=== PATIENT | female | born 1950 | race Caucasian/White ===

== ENCOUNTER 2024-06-22 13:01 | Inpatient (IN) | payer MEDICARE, SELFPAY ==
[2024-06-22] VITALS (13 sets, daily range): BP systolic 107–143; BP diastolic 73–107; BMI 31.7
--- NOTE | 2024-06-22 08:47 | ED.GENMED ---
History of Present Illness
General
Chief Complaint: Breathing Problem
Source: patient
Exam Limitations: none
Time Seen by Provider: 06/22/24 08:46
Nursing documentation reviewed up to this point in time: agreed with
History of Present Illness
History of Present Illness:
pt is a 74 y/o F
on no medications
sedentary lifestyle
here from outpatient CT with + b/l PE mild clot burden, maybe pulm infarct and no evidence RV strain
pt has had sxs of UMANA with some pleuritic CP for a few weeks now, all symptoms resolved at rest. She saw a new family doctor about a week ago and because of the symptoms being for several weeks the physician opted to order a CT of the chest with
contrast which the patient had this morning. She was directly sent over to the emergency department after a finding of bilateral distal main pulmonary artery PEs with few additional segmental left lower lobe PE, no evidence of right heart strain
and may be a possible lung infarction measuring 2.6 x 1.8 cm in the left lower lobe.
Patient has no O2 requirement, she is tachycardic in the 110s,
With a left bundle branch block on EKG however the patient has no previous EKG in our system
She has no medical problems. Patient had COVID a year ago and has had some issues with a cough coming and going, may be wheezing, so she thought her symptoms were all related to COVID infection previously. Patient does note that she has had left
thigh pain off and on for several weeks. She has not had any swelling or discoloration to the leg
She has never had a DVT or PE before. Patient apparently likes to sit on the couch most of the day. She has not traveled across the country
Review of Systems
Review of Systems
Allergies reviewed?: Yes
All Other Systems: Not applicable
Phy Exam
Physical Exam
Physical Exam:
GENERAL: Alert , in no apparent distress mildly anxious but in no distress
EYE: pupils equal and reactive
NECK: Supple
ENT: o/p clr, mmm.
CARDIAC: Tachycardic 110s
LUNGS: Clear breath sounds bilaterally, no acute respiratory distress, no wheezes/rales/rhonchi
ABDOMEN: Soft, without focal tenderness, no r/g, no cvat, normal bowel sounds
NEUROLOGICAL: Alert and oriented, no focal neuro deficits
SKIN: Warm and dry, skin intact.
MUSCULOSKELETAL: No edema, well perfused. neg jose's sign
PSYCH: Normal and appropriate interaction.
Scores
Heart Failure Risk
Heart Failure Risk Score: Not Applicable
Course
Orders/Labs/Results
Orders:
Orders
06/22/24 08:46
Electrocardiogram (*1) Urgent
Reason for Study: Bradycardia / Tachycardia
EKG- Treatment ONCE
06/22/24 08:54
Complete Blood Count/With Diff Urgent
Comprehensive Metabolic Panel Urgent
D-Dimer Urgent
NT-proBNP Urgent
PTT Urgent
Prothrombin Time Urgent
Troponin I Urgent
06/22/24 09:07
Heparin 7,600 units IV NOW STA
Nursing to Place Non Medication Order As Directed
Physician Order: PTT 6 hours after initial start of Heparin infusion
Above order entered?: Yes
Venous Doppler Lwr Ext Bilat [US Periph Venous LOWER Ext Edwin] Urgent
Comment:
Reason For Exam: b/l PE, h/o L leg pain
06/22/24 09:15
Heparin 48549 Units/250 ml 25,000 units in 250 ml IV PER PROTOCOL
Weight to be used for heparin protocol in kilograms (kg):: 94.6
Protocol:: DVT/PE
PTT Goal Range to be used:: PTT 73 to 111 seconds
Order type:: Initial
INITIAL Infusion Dose (UNITS/KG/hr) & then follow protocol:: 18 units/kg/hr
Infusion Dose in UNITS/hr & then follow protocol (UNITS/hr):: 1,700
INFUSION RATE in mL/hr & then follow protocol (mL/hr):: 17
For DVT/PE algorithm, re-bolus for low PTT?: Yes
PTT less than or equal to 64 seconds:: Re-bolus 80 units/kg (max 10,000units). Increase by 400 units/hr
(+ 4mL/hr)
PTT 64.1 to 72.9 seconds:: Re-bolus 40 units/kg (max 5,000 units). Increase by 200 units/hr
(+ 2mL/hr)
PTT 73 to 111 seconds:: Target Range. No change in rate.
PTT 111.1 to 130.9 seconds:: Decrease rate by 200 units/hr (- 2 mL/hr)
PTT 131 to 199.9 seconds:: HOLD for 1 hr. Then decrease by 300 units/hr (- 3mL/hr)
PTT greater than or equal to 200 seconds:: HOLD for 2 hrs & Notify Provider. Then decrease by 400 units/hr
(- 4mL/hr)
Lab follow-up:: Each change, PTT q6h until 2 consecutive are therapeutic. Then
PTT daily.
06/22/24 09:19
Heparin 7,600 units IV PRN PRN
06/22/24 09:20
Heparin 3,800 units IV PRN PRN
06/22/24 Lunch
Regular
At Your Request: Full Participation
06/22/24 10:27
PULMONARY CONSULT Urgent
Consulting Provider: Oleg Monteiro
Was physician already notified: Yes
06/22/24 11:58
Admit/Transfer Patient As Directed
Co-Sign Provider:
Level of Care: Inpatient admission
Assign to:: Telemetry
Physician / Group: Sarthak/Hospitalist
Diagnosis: Pulmonary Embolism
Reason for Telemetry: Arrhythmia
Date to Stop Telemetry: 06/25/24
Time to Stop Telemetry: 11:00
Reason for Hospitalization: Pulmonary Embolism
Expected length of stay greater than two midnights?: Yes
ELOS- Estimated Length of Stay in days: 4
I certify the patient meets the requirements for IP care: Yes
PRN Pain Medication Management As Directed
May give lesser potent ordered pain med per pt: Yes
preference::
Protocol:: Medication orders for pain may be administered in a
manner that supports deferring to patient preference
when the pt is:
- Requesting an ordered lesser potent pain medication.
Least to most potent pain medications are defined
as: acetaminophen < NSAID < tramadol < opioids
(morphine, oxycodone, hydromorphone).
- Requesting a lesser dose of the same medication IF
ORDERED.
- Requesting a less intrusive route of administration
if both routes are prescribed by the provider (PO <
IV).
06/22/24 12:01
Code Status As Directed
Resuscitation Status: Full Code
06/22/24 13:56
Bisacodyl [Dulcolax] 10 mg RECTAL [id number] PRN
Docusate W/Senna [Senokot-S] 1 tablet PO BIDPRN PRN
Polyethylene Glycol Powder [Miralax] 17 grams PO DAILYPRN PRN
06/22/24 13:56
Activity As Directed
Activity Level: Out of Bed-Early Mobility
Vital Signs As Directed
Frequency: Per unit guidelines
06/22/24 14:03
Carboxymethylcellulose [Refresh Celluvisc Gel] 1 drops OPHTH QIDPRN PRN
06/23/24 06:00
Complete Blood Count/No Diff IN AM
Comprehensive Metabolic Panel IN AM
06/23/24 08:00
Aspirin Chewable [Low Strength Aspirin] 81 mg PO DAILY
Cholecalciferol (Vitamin D3) [VITAMIN D3 (cholecalciferol)] 50 mcg PO DAILY
omega-3 fatty acids-fish oil 1 cap PO DAILY
vitamin A 2,400 mcg PO DAILY
vitamin K2 40 mcg PO DAILY
06/25/24 11:00
DC Protocol for Telemetry ONCE
Abnormal Lab Results
06/22/24
08:54
MPV 10.8 H fL
(7.4-10.4)
D-Dimer 3.09 H ug/mlFEU
(0.00-0.50)
BUN 20 H mg/dl
(7-17)
Glucose 130 H mg/dl
(70-99)
Troponin I 0.056 H* ng/ml
06/22/24 08:54
06/22/24 08:54
Vital Signs
Initial and Last Documented VS:
Initial Vital Signs
Temp Pulse Resp BP Pulse Ox
37.2 C 113 18 139/95 98
06/22/24 08:38 06/22/24 08:38 06/22/24 08:38 06/22/24 08:38 06/22/24 08:38
Last Documented Vital Signs
Temp Pulse Resp BP Pulse Ox
37.2 C 118 16 140/101 97
06/22/24 08:38 06/22/24 16:01 06/22/24 16:26 06/22/24 16:01 06/22/24 16:15
MDM/Problems Addressed
Differential Diagnosis Includes:
pulmonary emboli,
MDM/Problems Addressed:
room 27 is [facility] 74 y/o F
no previous PMH
5 weeks of cough/wheezing/UMANA mild chest pain with walking occasionally
went to new PCP last week, ordered outpatient CT, had it done today showing b/l PE, probable LLL infarct
pt is normotensive, no o2 requirement, no symptoms at rest; tachy 110s, LBBB on ekg no old one
trop 0.05, no chest pain;
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 welsh as a PERT alert; given stability, not thrombectomy candidate, recommends heparin;
DVT + on R popliteal vein, occlusive
note that pt is anxious about this, and her HR is 110s but had brief episode 150s; has this LBBB/widened qrs
strip showed to E attending
it was brief; probably sinus
*Critical Care Note
Total Time (30-74mins, 75-104mins- exclusive of procedures): Not Applicable
ED Attending Note
-
Portions of this chart may have been created with voice recognition software.� Occasional wrong word or��sound alike� substitutions may have occurred due to the inherent limitations of voice recognition software.
Discharge Plan
Departure
Patient Disposition: Admit
Date of Disposition: 06/22/24
Time of Disposition: 09:20
Admit to: IMU
Presentation/result/management discussed w/ accepting MD/DO: Hospitalist
Condition: Fair
Covid-19: Not Applicable
Discharge Problem:
Bilateral pulmonary embolism
Interventions
Interventions:
*Risk Screen - Suicide Last Done: 06/22/24 08:38
*General Assessment Last Done: 06/22/24 08:38
*Neglect/Abuse Screening Last Done: 06/22/24 08:38
*ED- Fall Risk Assessment Last Done: 06/22/24 08:56
*ED COVID-19 Vaccine History Last Done: 06/22/24 08:56
ED- Cardiac Assessment Last Done: 06/22/24 08:55
ED- Pulmonary Assessment Last Done: 06/22/24 08:55
[2024-06-22 09:00] LABS: % Basophils 0.8 % (0-2); % Eosinophils 2.5 % (0-6); % Immature Granulocytes 0.3 % (0-0.5); % Lymphocytes 30.9 % (20.5-51.1); % Monocytes 8.4 % (1.7-9.3); % Neutrophils 57.1 % (42.2-75.2); Absolute Basophils 0.1 10^3/uL (0-0.2); Absolute Eosinophils 0.2 10^3/uL (0-0.7); Absolute Lymphocytes 2.3 10^3/uL (1.2-3.4); Absolute Monocytes 0.6 10^3/uL (0.1-0.6); Absolute Neutrophils 4.3 10^3/uL (1.4-6.5); Hematocrit 38.9 % (37.0-47.0); Mean Corp Hgb Conc. 33.4 g/dL (33.0-37.0); Mean Corpuscular Hgb 30.8 pg (27.0-31.0); Mean Corpuscular Volume 92.2 fL (81.0-99.0); Mean Platelet Volume 10.8 fL (7.4-10.4); Nucleated Red Blood Cells % 0 %; Platelet Count 270 10^3/uL (130-400); Red Blood Cell Count 4.22 10^6/uL (4.20-5.40); Red Cell Dist. Width 12.9 % (11.5-14.5); White Blood Cell Count 7.6 10^3/uL (4.8-10.8)
[2024-06-22 09:12] LABS: APTT 25.7 Sec (23.4-35.0); INR 1.05; PT 14.1 Sec (11.4-14.6)
[2024-06-22 09:15] LABS: ALT (SGPT) 25 U/L (0-35); AST (SGOT) 28 U/L (14-36); Alkaline Phosphatase 80 U/L (38-126); Blood Urea Nitrogen 20 mg/dl (7-17); Calcium 9.9 mg/dl (8.4-10.2); Carbon Dioxide 23 mmol/L (22-30); Chloride 107 mmol/L (98-107); D-Dimer 3.09 ug/mlFEU (0.00-0.50); Glucose 130 mg/dl (70-99); Potassium 4.5 mmol/L (3.5-5.1); Sodium 139 mmol/L (135-145); Total Bilirubin 1.2 mg/dl (0.2-1.3); Total Protein 6.8 g/dl (6.3-8.2); eGFR 59.86
[2024-06-22] MEDS: HEPARIN 7600 UNITS IV (09:20)
[2024-06-22] MEDS: HEPARIN 25000 UNITS/250 ML IV (09:21)
[2024-06-22 09:32] LABS: NT-proBNP 3640 pg/ml; Troponin I 0.056 ng/ml
--- NOTE | 2024-06-22 10:52 | CON.PUL ---
Addendum entered and electronically signed by Oleg Monteiro MD 06/22/24 14:43:
Update (240PM - 06/22/2024): her echo showed severely reduced LVEF at 20% with severe valvular heart disease with moderate-severe MR. She does endorse chest tightness with SOB at nighttime and her CTA chest did show small bilateral pleural
effusions. There is lower lobe mild mosaic attenuation and intra-lobular septal thickening. In setting of her acute PE, would give a low dose diuretic now to see if this improves her SOB given her proBNP is elevated to 3640 but she has a mild clot
burden with no radiographic evidence of RV strain, hence the elevated pro-BNP may be more due to heart failure than this PE. Would recommend cardiology consult.
Original Note:
Consultation
Consultation Request
Date/Time Consultation Requested: 06/22/2024 - 1026
Date/Time Consultation Performed: 06/22/2024 - 1050
Requesting Provider: Ankita Elmore PA-C
Performing Provider: Dr. Monteiro
Reason for Consultation: Acute PE
Medical History
-
Chief Complaint: SOB
History of Present Illness:
74-year-old [place] female with a past medical history of gallbladder calculus and personal history of COVID-19 (2023) who presented with SOB and outpatient CTA chest was positive for a bilateral PE. Patient saw her PCP (Dr. Gonzalez) on 06/05/2024.
She endorsed SOB that has been ongoing for few years and was also found to be wheezing on exam. CT chest as well as EKG, echo and additional blood work ordered. CBC & TFTs were WNL, and chemistry showed potassium 5.3, sodium 145, serum bicarbonate
level [address] chest with IV contrast performed today showing bilateral pulmonary emboli with mild clot burden with no evidence of RV strain. Also small bilateral pleural effusions. Patient sent to the ER for further management.
PERT alert called. Patient is on room air and is normotensive, and not considered a candidate for catheter-directed thrombolysis or embolectomy at this time. Subsequent bilateral lower extremity ultrasound showed an occlusive DVT in the right
posterior tibial vein with no other DVT identified. Patient will be admitted to the hospital and Pulmonary service consulted for additional management/recommendations.
When I saw the patient, she was resting in bed in no acute distress, breathing comfortably on room air. She was tachypneic with heart rate 108, BP 130/91, and saturating 96% on room air. Patient's , Mello, present at bedside. She says she
has been having chest pressure/tightness with an occasional dry cough that may occur with activity. At nighttime she hears some wheezing and crackling mainly on the right side of her lung. She does have a history of allergies and sometimes cold
weather can trigger her chest discomfort/tightness. She does have albuterol at home but does not use it as she tries to stay away from medications if possible. She does live a sedentary lifestyle which she admits to and the reports. No
recent car rides, plane rides, no personal history of malignancy, she is a non-smoker, and no family history of blood clots.
PMHx: Gallbladder polyp, personal history of COVID-19 (2023), allergies
PSHx: Appendectomy
Past Medical History
Past Medical History: Other (Above as per HPI)
Past Surgical History: Other (Above as per HPI)
Social History
Tobacco: Non-smoker
Alcohol: None
Drug: None
Personal:
Living: With Family (=Mello)
Family History
Family History: Cancer (Mother: Colon cancer, ovarian cancer, breast cancer)
Allergies / Home Medications
Allergies
Allergy/AdvReac Type Severity Reaction Status Date / Time
No Known Allergies Allergy Unverified 06/22/24 08:38
Home Medications
�Medication �Instructions �Recorded �Confirmed �Last Taken �Type
aspirin 81 mg chewable tablet 81 mg PO DAILY 06/22/24 06/22/24 06/19/24 History
carboxymethylcellulose sodium 0.25 1 drp ophthalmic (eye) QIDPRN PRN 06/22/24 06/22/24 Unknown History
% eye drops (TheraTears) dry eye
cholecalciferol (vitamin D3) 50 50 mcg PO DAILY 06/22/24 06/22/24 06/21/24 History
mcg (2,000 unit) capsule (Vitamin
D3)
omega-3 fatty acids-fish oil 684 1 cap PO DAILY 06/22/24 06/22/24 06/21/24 History
mg-1,200 mg capsule,delayed release
vitamin A 2,400 mcg capsule 2,400 mcg PO DAILY 06/22/24 06/22/24 06/21/24 History
vitamin K2 40 mcg tablet 40 mcg PO DAILY 06/22/24 06/22/24 06/21/24 History
Review of Systems
-
History Source: Patient
All other systems: Negative unless noted
Vitals / Labs / Diagnostic Testing
Vital Signs
Temp Pulse Resp BP Pulse Ox
98.9 F 103 17 129/98 98
06/22/24 08:38 06/22/24 10:00 06/22/24 10:00 06/22/24 10:00 06/22/24 10:02
Lab Data
06/22/24 08:54
06/22/24 08:54
Laboratory Results
06/22/24
08:54
PT 14.1
INR 1.05
APTT 25.7
Diagnostic Testing:
Physical Exam
-
HEENT: Normocephalic and Anicteric
Cardiovascular: S1/S2, Peripheral Edema (No lower extremity pitting edema bilaterally) and Other (Tachycardic)
Respiratory: Wheeze (negative), Rales (Bibasilar + left upper lobe), Rhonchi (negative) and Non-Labored Respirations
GI: Soft, Distended (Abdominal obesity), Non Tender and Normal Bowel Sounds
Neurology: AO x 3 and Tremors (negative)
Skin: Warm and Dry
General: Respiratory Distress (negative), Comfortable, Fever (negative) and Chills (negative)
Assessment
-
Assessment: 74-year-old [place] female with a past medical history of gallbladder calculus and personal history of COVID-19 (2023) who presented with SOB and outpatient CTA chest was positive for a bilateral PE. Patient saw her PCP (Dr. Gonzalez) on
06/05/2024. She endorsed SOB that has been ongoing for few years and was also found to be wheezing on exam. CT chest as well as EKG, echo and additional blood work ordered. CBC & TFTs were WNL, and chemistry showed potassium 5.3, sodium 145, serum
bicarbonate level [address] chest with IV contrast performed today showing bilateral pulmonary emboli with mild clot burden with no evidence of RV strain. Also small bilateral pleural effusions. Patient sent to the ER for further
management. PERT alert called. Patient is on room air and is normotensive, and not considered a candidate for catheter-directed thrombolysis or embolectomy at this time. Subsequent bilateral lower extremity ultrasound showed an occlusive DVT in
the right posterior tibial vein with no other DVT identified. Patient will be admitted to the hospital and Pulmonary service consulted for additional management/recommendations.
Chronic conditions [employer]: Gallbladder polyp, personal history of COVID-19 (2023)
Impression:
#Acute submassive bilateral pulmonary embolism without radiographic RV strain (PESI score intermediate risk)
#Elevated troponin due to above
#Right lower extremity occlusive DVT
#Wheezing and chest tightness with activity likely due to undiagnosed asthma vs RAD (absolute eosinophil count: 200 on 06/22/2024)
#Left lower lobe pleural-based opacification (2.6 x 1.8 cm) likely due to lung infarction
#Chronic gallstone calculus without cholecystitis
Plan:
- Patient found to have bilateral pulmonary emboli with mild clot burden on CT chest with IV contrast which was ordered from her PCP on 06/05/2024 due to SOB with recent complaints of chest pain/tightness
- Unclear if this PE is provoked given her sedentary lifestyle vs unprovoked
- There may be some underlying asthma versus reactive airway disease causing her chest tightness as she also endorses an occasional dry cough especially with exertion and wheezing/crackling in her chest that she hears at night mainly on the right
side; she also has a history of allergies - will get outpatient PFTs
- She has had cardiac catheterizations in the past (2013+2017 - she was never stented, per the patient + )
- Continue with heparin drip and check transthoracic echocardiogram
- Bedrest for at least 24 hours once therapeutic on heparin gtt
- Eventual transition to NOAC, preferably Eliquis; consult case management to assist with affordability
- Continue to trend troponin until it peaks
- PESI score is 92, class III which is an intermediate risk (3.2 - 7.1% 30-day mortality) --> she remains hemodynamically stable on room air breathing comfortably with saturations >95%; no indication for catheter directed thrombolysis or
embolectomy at this time, and she should do well with systemic anticoagulation
- Recommend outpatient evaluation by hematology for hypercoagulable workup and to assist with AC duration as unclear if her VTE is provoked vs unprovoked
- She has a LLL pleural-based opacity measuring 2.6 x 1.8 cm, likely a lung infarct. Repeat CT chest within the next 6-8 weeks to assess for stability - I will arrange for this once she sees us in our office
- Maintain SpO2 >90-94% with supplemental O2 as needed
- prn nebulized bronchodilators - not currently bronchospastic
- Incentive spirometer encouraged q1hr while awake
- Replete electrolytes with K>4, Mg>2
- Trend H/H and transfuse if needed to keep Hb>7g/dL; keep plt>20k, unless there is concern for bleeding then keep plt>50k
- Maintain euglycemia with goal BG >100 and <180
- PT/OT
- DVT ppx: heparin gtt
Pulmonary service will continue to follow along. Outpatient pulmonary office follow-up will be arranged for full PFTs and continued monitoring of her symptoms
Data:
CT Chest with IV contrast 06/22/2024:
Bilateral pulmonary emboli. Mild clot burden. No evidence of right heart strain.
Small bilateral pleural effusions.
Gallstone.
Bilateral LE Duplex US 06/22/2024:
1. Occlusive deep venous thrombosis in right posterior tibial vein. No other deep venous thrombosis is identified.
2. Diffuse greater than expected pulsatility of the venous waveforms, a finding that may be seen in association with mitral regurgitation.
Total time spent today was 58 minutes for this encounter. Time includes reviewing laboratory test/imaging results, reviewing pertinent medical records, obtaining and reviewing medical history, performing an appropriate exam, ordering medications,
tests and procedures. Time also includes documentation of this encounter, coordinating patient care and communicating with other healthcare professionals. Total time does not include separately billed tests performed on this date of service.
--- NOTE | 2024-06-22 12:04 | W.PN.HOSP.TC ---
Today's Communication/Plan
-
IV Heparin
Assessment / Plan
Assessment / Plan
Acute/subacute Pulmonary Embolism
Bilateral pulmonary emboli. Mild clot burden. No evidence of right heart strain.
Small bilateral pleural effusions.
Gallstone.
DVT - venous doppler:
1. Occlusive deep venous thrombosis in right posterior tibial vein. No other deep venous thrombosis is identified.
2. Diffuse greater than expected pulsatility of the venous waveforms, a finding that may be seen in association with mitral regurgitation.
EKG with LBBB
P: IV Heparin
consult pulm
see dictated note
Pt is a full code
Anticipated Discharge: > 48 hours
Subjective/Interval History
-
Date of Service: June 22, 2024
SOB for past 3 weeks, no precipitating event
Objective Data
-
Labs:
Laboratory Results
06/22/24
08:54
WBC 7.6
Hgb 13.0
Hct 38.9
Plt Count 270
PT 14.1
INR 1.05
APTT 25.7
Sodium 139
Potassium 4.5
Chloride 107
Carbon Dioxide 23
BUN 20 H
Creatinine 1.0
Glucose 130 H
Calcium 9.9
Total Bilirubin 1.2
AST 28
ALT 25
Alkaline Phosphatase 80
Vital Signs:
Vital Signs
Temp Pulse Resp BP Pulse Ox
98.9 F 105 17 130/89 95
06/22/24 08:38 06/22/24 11:00 06/22/24 10:00 06/22/24 11:00 06/22/24 11:04
Review of Systems
-
History Source: Patient and Family ( in room)
EENT: Reports No Symptoms Reported
Respiratory: Reports Trouble Breathing
Cardiac: Reports Other (tachycardia); Denies Chest Pain
Abdomen/GI: Reports No Symptoms
Genitourinary: Reports No Symptoms
Musculoskeletal: Reports No Symptoms
Neuro: Reports No Symptoms
Physical Exam
-
General: Well Developed, Well Nourished and No Apparent Distress
HEENT: Normocephalic, Atraumatic and Moist Mucous Membranes
Respiratory: Clear to Auscultation; Negative Wheezes, Rales or Rhonchi
Cardiac: Regular Rhythm, S1/S2 and Tachycardic
GI: Soft, Nontender and Nondistended
Musculoskeletal: No Clubbing, No Cyanosis and No Edema
Neuro: Awake, Alert and Oriented
Psych: Calm
[2024-06-22] MEDS: LASIX 20 MG IV (15:26)
--- NOTE | 2024-06-22 16:05 | CM ---
Met with patient and at the bedside in the ED
Pharmacy verified: [facility] @ [address] [place] [address]
Patient lives with ; multilevel home; 0 steps to enter; 13 steps to bed/bath; railing on stairs; powder room 1st floor
PLOF: reported she is independent with ambulation, stairs, and ADLs
NO DME
NO SNF or Home Health utilization history
will transport home
Plan: discharge to home; do not anticipate needs but will monitor and support if services needed
[2024-06-22 16:12] LABS: APTT 192.7 Sec (23.4-35.0)
--- NOTE | 2024-06-22 16:56 | CON.CAR ---
Addendum entered and electronically signed by Donavon Burk MD 06/22/24 17:50:
Add problem:
Mitral regurgitation:
- Mod-severe, secondary
- Suspect will improve with HF med rx +/- [employer]
- but if HF worsens and MR persists despite the above then in future MitraClip evaluation could be pursued
Original Note:
Consultation
Consultation Request
Date/Time Consultation Requested: 06/22/2024 at 1443 hrs
Date/Time Consultation Performed: 06/22/2024 at 1450 hrs
Requesting Provider: Ankur De León MD
Performing Provider: Donavon Burk MD
Reason for Consultation: Abnormal Echo obtained to evaluate pulmonary embolus
Medical History
-
Chief Complaint: Dyspnea
History of Present Illness:
Pt saw new PCP and noted wheezing.
After a long time interviewing the patient it became clear that she knows that she has normal coronaries (at 2 caths), a LBBB, and a cardiomyopathy (one side of my heart works at 30%). She has had UMANA and an exertional chest tightness syndrome for
several years but perhaps it started AFTER the last cath, she is not certain.
.
.
Past Medical History
Past Medical History: Other (LBBB, non-ischemic cardiomyopathy)
Past Surgical History: Appendectomy
Social History
Tobacco: Non-Smoker
Alcohol: None
Drug: None
Personal:
Living: With Family
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
Family History
Family History: Other (father with TB, of likely complications of ETOH)
Allergies / Home Medications
Allergy/AdvReac Type Severity Reaction Status Date / Time
No Known Allergies Allergy Unverified 06/22/24 08:38
�Medication �Instructions �Recorded �Confirmed �Type
aspirin 81 mg chewable tablet 81 mg PO DAILY 06/22/24 06/22/24 History
carboxymethylcellulose sodium 0.25 1 drp ophthalmic (eye) QIDPRN PRN 06/22/24 06/22/24 History
% eye drops (TheraTears) dry eye
cholecalciferol (vitamin D3) 50 50 mcg PO DAILY 06/22/24 06/22/24 History
mcg (2,000 unit) capsule (Vitamin
D3)
omega-3 fatty acids-fish oil 684 1 cap PO DAILY 06/22/24 06/22/24 History
mg-1,200 mg capsule,delayed release
vitamin A 2,400 mcg capsule 2,400 mcg PO DAILY 06/22/24 06/22/24 History
vitamin K2 40 mcg tablet 40 mcg PO DAILY 06/22/24 06/22/24 History
Review of Systems
-
Respiratory: Trouble Breathing
Cardiac: Chest Pain
Physical Exam
Vital Signs
Temp Pulse Resp BP Pulse Ox
98.9 F 118 16 140/101 97
06/22/24 08:38 06/22/24 16:01 06/22/24 16:26 06/22/24 16:01 06/22/24 16:15
Lab Results
06/22/24 08:54
06/22/24 08:54
Troponin I 0.056 ng/ml H* 06/22/24 08:54
Joh-H-Rmkagmyxkrf Pept 3640 pg/ml 06/22/24 08:54
Physical Exam
General: Well Developed and Well Nourished
HEENT: Normocephalic, Anicteric and Moist Mucous Membranes
Respiratory: Clear
Cardiac: S1/S2 and Regular Rhythm; Negative Murmur
GI: Soft, Non Tender, Non Distended and Normal Bowel Sounds
Genito-urinary: No Costovertebral Tender
Musculoskeletal: No Clubbing, Cyanosis and Edema (at most trace)
Skin: Warm and Dry
Neuro: AO x 3 and No Motor Deficits
Psych: Calm
Impression / Plan
-
Background: 74 yo new to [facility] who was found on CTA to have pulm emboli and an echo shows severe LV systolic dysfunction.
She knows about her LBBB and non-ischemic cardiomyopathy. She has not seen a netting inspector in several years.
She has had cardiac care at [facility] area and with netting inspector with [facility], Dr. Tim Henderson MD.
PCP Jennifer Gonzalez, DO
Card Luke Aquino MD, PhD (has not seen him yet; office appointment)
Suggest:
- Eventual GDMT with HF BB, RAAS-I (TAZ-I/ARNI/ARB), MRA (Aldactone or eplerenone), and SGLT-I (Farxiga or Jardiance) and a loop diuretic to control congestion
- She prefers no medications
- She notes that she tolerated medications poorly
- If CP syndrome persists after on max meds tolerated than could consider stress vs cath, pt reluctant to have a third cath, CP syndrome may be new since last cath, pt not sure
- If HF worsens despite max tolerated med rx then BiV ICD can be offered
- If EF does not improve on max tolerated meds to over 35% she can be offered primary prevention ICD
- Treatment of Pulm Embolism per medicine/pulmonary
- Will start with very low dose Metoprolol ER and IV Lasix and later add more as tolerate/pt allows
- Check cost of HF brand name meds
- HF education consults placed
- Over 75 min spent today, 06/22/2024 caring for the patient today by me (MD Wm)
Impression:
Pulmonary embolism
Chronic HFrEF, likely NYHA class 2, ACC/AHA stage 3
- The dyspnea, pleural effusions, and trace edema favor adding loop diuretic
- Add more meds over time
LBBB
- Onset after her 1st or perhaps 2nd cath
Non-ischemic cardiomyopathy
- She reports 2 caths spaced over 3-4 years, last cath without CAD
- She reports 'one side of my heart works at just 30%'
- For many years
Chest pain syndrome, chronic stable
- Onset several years ago but perhaps after last cath
- C/w stable angina but perhaps represents HF symptoms
Elevated blood pressure without a history of HTN
Medication intolerances
Subjective/Interval Hx:
See above
Data Reviewed
-
EKG: Tracing Personally Visualized and interpreted (ST, LBBB, 1st degree AV block)
CT Scan: Report Reviewed by me (Pulm emboli, bilat pleural effusions, suspected pulmonary infarct)
Ultrasound: Other (Cardiac echo: dilated LV, LVEF 20%, mod-severe MR, PASP 35-40%, RA 8, RV looked fine)
Total Time Spent with Patient (in minutes): Over 75 min spent caring for pt
--- NOTE | 2024-06-22 18:30 | PTCARENOTE ---
Pt arrived from ED at 1730. Pt resting comfortably at bedside with , no complaints at this time. Assessment completed, pt received drink and ordered dinner. Will continue to assess pt.
[2024-06-23 03:26] VITALS: BP 133/90
[2024-06-23] MEDS: HEPARIN 25000 UNITS/250 ML IV (05:19)
[2024-06-23 05:48] LABS: Hematocrit 37.5 % (37.0-47.0); Hemoglobin 12.7 g/dL (12.0-16.0); Mean Corp Hgb Conc. 33.9 g/dL (33.0-37.0); Mean Corpuscular Hgb 30.5 pg (27.0-31.0); Mean Corpuscular Volume 90.1 fL (81.0-99.0); Platelet Count 260 10^3/uL (130-400); Red Blood Cell Count 4.16 10^6/uL (4.20-5.40); Red Cell Dist. Width 12.8 % (11.5-14.5); White Blood Cell Count 6.8 10^3/uL (4.8-10.8)
[2024-06-23 05:53] LABS: APTT 69.2 Sec (23.4-35.0)
[2024-06-23 06:00] VITALS: BMI 31.4
[2024-06-23 06:15] LABS: ALT (SGPT) 23 U/L (0-35); AST (SGOT) 26 U/L (14-36); Albumin 3.7 g/dl (3.5-5.0); Alkaline Phosphatase 78 U/L (38-126); Blood Urea Nitrogen 21 mg/dl (7-17); Carbon Dioxide 25 mmol/L (22-30); Chloride 107 mmol/L (98-107); Estimated Creatinine Clearance 66 ml/min; Glucose 117 mg/dl (70-99); Potassium 4.6 mmol/L (3.5-5.1); Sodium 140 mmol/L (135-145); Total Protein 6.3 g/dl (6.3-8.2); eGFR > 60.00
[2024-06-23 07:05] VITALS: BP 130/87
[2024-06-23] MEDS: HEPARIN 3800 UNITS IV (07:10)
[2024-06-23] MEDS: TOPROL XL 12.5 MG PO (07:46)
[2024-06-23] MEDS: LOW STRENGTH ASPIRIN 81 MG PO (07:47)
[2024-06-23] MEDS: VITAMIN D3 (cholecalciferol) 50 MCG PO (07:47)
[2024-06-23] MEDS: LASIX 20 MG IV (07:49)
--- NOTE | 2024-06-23 08:26 | W.PN.PUL3 ---
Today's Communication / Plan
-
Continue heparin drip for now and transition to NOAC tonight, starting with Eliquis 10 mg BID x 7 days
Deferred GDMT + CHF management to cardiology
Outpatient imaging with repeat CT chest to assess stability of her left lower lobe opacification which is likely due to a pulmonary infarct
Okay to be up out of bed this afternoon now that it has been >24 hours s/p parenteral AC with therapeutic PTT
Encourage incentive spirometer
Maintain SpO2 >90-94%
Pulmonary service will continue to follow along; outpatient pulmonary follow-up will be arranged for full PFTs and monitoring of her LLL opacity
Assessment
-
Assessment: 74-year-old Occitan female with a past medical history of gallbladder calculus and personal history of COVID-19 (2023) who presented with SOB and outpatient CTA chest was positive for a bilateral PE. Patient saw her PCP (Dr. Gonzalez) on
06/05/2024. She endorsed SOB that has been ongoing for few years and was also found to be wheezing on exam. CT chest as well as EKG, echo and additional blood work ordered. CBC & TFTs were WNL, and chemistry showed potassium 5.3, sodium 145, serum
bicarbonate level [address] chest with IV contrast performed today showing bilateral pulmonary emboli with mild clot burden with no evidence of RV strain. Also small bilateral pleural effusions. Patient sent to the ER for further
management. PERT alert called. Patient is on room air and is normotensive, and not considered a candidate for catheter-directed thrombolysis or embolectomy at this time. Subsequent bilateral lower extremity ultrasound showed an occlusive DVT in
the right posterior tibial vein with no other DVT identified. Patient will be admitted to the hospital and Pulmonary service consulted for additional management/recommendations.
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
Impression:
#Acute submassive bilateral pulmonary embolism without radiographic RV strain (PESI score intermediate risk)
#Elevated troponin due to above
#Right lower extremity occlusive DVT
#Wheezing and chest tightness with activity likely due to undiagnosed asthma vs RAD (absolute eosinophil count: 200 on 06/22/2024)
#Left lower lobe pleural-based opacification (2.6 x 1.8 cm) likely due to lung infarction
#Chronic gallstone calculus without cholecystitis
#Chronic HFrEF/NICM
#Moderate to severe mitral regurgitation
#LBBB
Plan:
- Patient found to have bilateral pulmonary emboli with mild clot burden on CT chest with IV contrast which was ordered from her PCP on 06/05/2024 due to SOB with recent complaints of chest pain/tightness
- Unclear if this PE is provoked given her sedentary lifestyle vs unprovoked
- There may be some underlying asthma versus reactive airway disease causing her chest tightness as she also endorses an occasional dry cough especially with exertion and wheezing/crackling in her chest that she hears at night mainly on the right
side; she also has a history of allergies - will get outpatient PFTs
- She has had cardiac catheterizations in the past (2013+2017 - she was never stented, per the patient + ); TTE obtained on 06/22/2024 shows moderately dilated LV with LVEF 20% with global hypokinesis with moderate�severe MR and
mild�moderately elevated PASP at 35-40 mmHg assuming RAP of 8 mmHg
- Patient says that her 'one side of the heart has always been reduced at around 30%'; cardiology on board --> defer GDMT meds to them; if LVEF does not improve then she may need an ICD; she may also be a candidate for mitraclip if CHF worsens
- Continue with heparin drip
- Bedrest for at least 24 hours once therapeutic on heparin gtt - can be up out of bed this afternoon
- Ok to transition to NOAC , preferably Eliquis, tonight; consult case management to assist with affordability; per cardiology, once on Eliquis would DC ASA given bleeding risk
- Continue to trend troponin until it peaks
- PESI score is 92, class III which is an intermediate risk (3.2 - 7.1% 30-day mortality) --> she remains hemodynamically stable on room air breathing comfortably with saturations >95%; no indication for catheter directed thrombolysis or
embolectomy at this time, and she should do well with systemic anticoagulation
- Recommend outpatient evaluation by hematology for hypercoagulable workup and to assist with AC duration as unclear if her VTE is provoked vs unprovoked
- She has a LLL pleural-based opacity measuring 2.6 x 1.8 cm, likely a lung infarct. Repeat CT chest within the next 6-8 weeks to assess for stability - I will arrange for this once she sees us in our office
- Maintain SpO2 >90-94% with supplemental O2 as needed
- prn nebulized bronchodilators - not currently bronchospastic
- Incentive spirometer encouraged q1hr while awake
- Replete electrolytes with K>4, Mg>2
- Trend H/H and transfuse if needed to keep Hb>7g/dL; keep plt>20k, unless there is concern for bleeding then keep plt>50k
- Maintain euglycemia with goal BG >100 and <180
- PT/OT
- DVT ppx: heparin gtt
Pulmonary service will continue to follow along. Outpatient pulmonary office follow-up will be arranged for full PFTs and continued monitoring of her symptoms
Data:
CT Chest with IV contrast 06/22/2024:
Bilateral pulmonary emboli. Mild clot burden. No evidence of right heart strain.
Small bilateral pleural effusions.
Gallstone.
Bilateral LE Duplex US 06/22/2024:
1. Occlusive deep venous thrombosis in right posterior tibial vein. No other deep venous thrombosis is identified.
2. Diffuse greater than expected pulsatility of the venous waveforms, a finding that may be seen in association with mitral regurgitation.
Total time spent today was 36 minutes for this encounter. Time includes reviewing laboratory test/imaging results, reviewing pertinent medical records, obtaining and reviewing medical history, performing an appropriate exam, ordering medications,
tests and procedures. Time also includes documentation of this encounter, coordinating patient care and communicating with other healthcare professionals. Total time does not include separately billed tests performed on this date of service.
Subjective Data
-
Date of Service:
Date of Service: June 23, 2024
Chief Complaint: Pulmonary Follow Up
Subjective:
Patient was seen and evaluated today at bedside. She is doing well. Breathing much better today. Currently on room air breathing comfortably - remains on heparin drip. Currently denies chest pain, AGRAWAL, nausea, fevers or chills.
Review of Systems
General: Other (Negative unless mentioned above)
Objective Data
Data Reviewed
Vital Signs / I&O / Oxygen:
Vital Signs
Temp Pulse Resp BP Pulse Ox
97.8 F 101 19 130/87 95
06/23/24 07:05 06/23/24 07:49 06/23/24 07:05 06/23/24 07:49 06/23/24 07:05
Intake and Output
06/22/24 06/23/24 06/24/24
06:59 06:59 06:59
Intake Total 480 / 480
Balance 480 / 480
SaO2 95
Physical Exam
General: Respiratory Distress (negative), Comfortable, Chills (negative) and Sweats (negative)
HEENT: Normocephalic and Anicteric
Cardiovascular: S1-S2 and Peripheral Edema (negative)
Respiratory: Wheeze (negative), Crackles (negative), Rhonchi (negative) and Non-Labored Respirations
GI: Soft, Distended (Abdominal obesity), Non Tender and Normal Bowel Sounds
Neurology: AO x 3 and Tremors (negative)
Skin: Warm, Dry, Cyanosis (negative) and Jaundice (negative)
Labs/Micro/Reports
Lab Data
06/23/24 05:17
06/23/24 05:17
Laboratory Results
06/22/24 06/22/24 06/22/24
08:54 15:25 22:38
PT 14.1
INR 1.05
APTT 25.7 192.7 H* 132.0 H
06/23/24
05:17
PT
INR
APTT 69.2 H
[2024-06-23 11:05] VITALS: BP 131/81
--- NOTE | 2024-06-23 13:12 | W.PN.HOSP.TC ---
Today's Communication/Plan
-
transition from Heparin to Eliquis
Assessment / Plan
Assessment / Plan
Acute/subacute Pulmonary Embolism
Bilateral pulmonary emboli. Mild clot burden. No evidence of right heart strain.
Small bilateral pleural effusions.
Gallstone.
DVT - venous doppler:
1. Occlusive deep venous thrombosis in right posterior tibial vein. No other deep venous thrombosis is identified.
2. Diffuse greater than expected pulsatility of the venous waveforms, a finding that may be seen in association with mitral regurgitation.
EKG with LBBB
Echo: Left ventricle is moderately dilated.
Severely reduced left ventricular systolic function.
LVEF 20% with global hypokinesis.
Moderate to severe mitral regurgitation.
Estimated PASP 35-40 mmHg and estimated RA 8 mmHg.
No prior study available for comparison.
P: IV Heparin to transition to Eliquis 10 mg bid
consult pulm and cardio. Dr. Burk recommends stopping ASA while on Eliquis
see dictated note
Pt is a full code
Anticipated Discharge: 24 - 48 hours
Subjective/Interval History
-
Date of Service: June 23, 2024
In good spirits
Objective Data
-
Labs:
Laboratory Results
06/23/24 06/23/24
05:17 13:01
WBC 6.8
Hgb 12.7
Hct 37.5
Plt Count 260
APTT 69.2 H Pending
Sodium 140
Potassium 4.6
Chloride 107
Carbon Dioxide 25
BUN 21 H
Creatinine 0.9
Glucose 117 H
Calcium 10.0
Total Bilirubin 1.0
AST 26
ALT 23
Alkaline Phosphatase 78
Vital Signs:
Vital Signs
Temp Pulse Resp BP Pulse Ox
97.6 F 102 17 131/81 98
06/23/24 11:05 06/23/24 11:05 06/23/24 11:05 06/23/24 11:05 06/23/24 11:05
I&O
06/22/24 06/23/24 06/24/24
06:59 06:59 06:59
Intake Total 480 / 480
Balance 480 / 480
Review of Systems
-
History Source: Patient and Family ( in room)
EENT: Reports No Symptoms Reported
Respiratory: Reports Trouble Breathing
Cardiac: Reports Other (tachycardia); Denies Chest Pain
Abdomen/GI: Reports No Symptoms
Genitourinary: Reports No Symptoms
Musculoskeletal: Reports No Symptoms
Neuro: Reports No Symptoms
Physical Exam
-
General: Well Developed, Well Nourished and No Apparent Distress
HEENT: Normocephalic, Atraumatic and Moist Mucous Membranes
Respiratory: Clear to Auscultation; Negative Wheezes, Rales or Rhonchi
Cardiac: Regular Rhythm, S1/S2 and Tachycardic
GI: Soft, Nontender and Nondistended
Musculoskeletal: No Clubbing, No Cyanosis and No Edema
Neuro: Awake, Alert and Oriented
Psych: Calm
--- NOTE | 2024-06-23 13:27 | W.PN.CD ---
Today's Communication / Plan
-
Continue Lasix and metoprolol ER
As outpatient anticipate increasing meds as tolertaed and adding other GDMT
Impression / Plan
-
Background: 74 yo new to [facility] who was found on CTA to have pulm emboli and an echo shows severe LV systolic dysfunction. By history chronic LBBB and non-ischemic cardiomyopathy. She has not seen a enamel applier in several
years. She has had cardiac care at [facility] area and with enamel applier with [facility], Dr. Tim Henderson MD.
PCP Jennifer Gonzalez DO
Card Luke Aquino MD, PhD (has not seen him yet; office appointment)
Impression:
Pulmonary embolism
- Per primary service
Chronic HFrEF, likely NYHA class 2, ACC/AHA stage 3
- The dyspnea, pleural effusions, and trace edema favor adding loop diuretic
- Eventual GDMT with HF BB, RAAS-I (TAZ-I/ARNI/ARB), MRA (Aldactone or eplerenone), and SGLT-I (Farxiga or Jardiance) and a loop diuretic to control congestion
- Add more meds over time
- If HF worsens despite max tolerated med rx then BiV ICD can be offered
- If EF does not improve on max tolerated meds to over 35% she can be offered primary prevention ICD
LBBB
- Onset after her 1st or perhaps 2nd cath
Non-ischemic cardiomyopathy
- She reports 2 caths spaced over 3-4 years, last cath 2018/2018 without CAD
- She reports 'one side of my heart works at just 30%'
- For many years
Mitral regurgitation:
- Mod-severe, secondary
- Suspect will improve with HF med rx +/- [employer]
- but if HF worsens and MR persists despite the above then in future MitraClip evaluation could be pursued
Chest pain syndrome, chronic stable
- Onset several years ago but perhaps after last cath
- C/w stable angina but perhaps represents HF symptoms
- If CP syndrome persists after on max meds tolerated than could consider stress vs cath, pt reluctant to have a third cath, CP syndrome may be new since last cath, pt not sure
Elevated blood pressure without a history of HTN
Medication intolerances
Subjective/Interval Hx:
Feels fine at rest
Physical Exam
Vital Signs/Labs
Vital Signs
Temp Pulse Resp BP Pulse Ox
97.6 F 102 17 131/81 98
06/23/24 11:05 06/23/24 11:05 06/23/24 11:05 06/23/24 11:05 06/23/24 11:05
06/22/24 06/23/24 06/24/24
06:59 06:59 06:59
Actual Weight 90.945 kg
06/23/24 05:17
06/23/24 05:17
PT 14.1 Sec (11.4-14.6) 06/22/24 08:54
INR 1.05 06/22/24 08:54
APTT 69.2 Sec (23.4-35.0) H 06/23/24 05:17
06/22/24
08:54
Wwq-S-Jehkoxutwdd Pept 3640
LAB Results
06/22/24
08:54
Troponin I 0.056 H*
Physical Exam
Constitutional: No acute distress
EENT: Anicteric
Cardiovascular: Rhythm & rate is regular and Pedal edema present (trace)
Respiratory: Respiratory effort normal and Lungs clear to auscul.
GI: Soft and Distention absent
Neuro/Psych: AO x 3
Data Reviewed
-
Date of Service: June 23, 2024
[2024-06-23 13:45] LABS: APTT 117.6 Sec (23.4-35.0)
--- NOTE | 2024-06-23 14:18 | CM ---
Addendum entered by Celsa Tomas 06/23/24 15:27:
reviewed pricing with patient
Addendum entered by Celsa Tomas 06/23/24 14:33:
CM consult completed, pricing for medications
Called [facility] & spoke with Brittany pharmacist
Enestro 24/25 po BID - $606/30 day supply
Farxiga 10mg daily - $139/30 day supply
Jardiance 10mg daily - $146/30 day supply
Eliquis 5mg 2xday - $141/30 day supply
Xeralto 20mg daily - $139/[address] Burk
Original Note:
Patient seen at bedside
IA completed
Lives with in a 2 story home, 1 step to enter, flight of stairs to bed/bath, powder room 1st floor
PLOF: independent, no device
Denies DME
Denies VN/Rehab
PCP: Jennifer Gonzalez
Pharmacy: [address], [place]
PLAN: Home, no needs anticipated
[2024-06-23 15:05] VITALS: BP 118/83
--- NOTE | 2024-06-23 19:06 | PTCARENOTE ---
Per order, pt taken off heparin at 1900.
[2024-06-23 19:30] VITALS: BP 106/69
[2024-06-23] MEDS: ELIQUIS 10 MG PO (20:03)
[2024-06-23 23:00] VITALS: BP 122/73
[2024-06-24 03:00] VITALS: BP 116/79
[2024-06-24 06:00] VITALS: BMI 31.5
[2024-06-24 06:23] LABS: Hematocrit 35.6 % (37.0-47.0); Hemoglobin 11.9 g/dL (12.0-16.0); Mean Corp Hgb Conc. 33.4 g/dL (33.0-37.0); Mean Corpuscular Hgb 30.3 pg (27.0-31.0); Mean Corpuscular Volume 90.6 fL (81.0-99.0); Mean Platelet Volume 11.1 fL (7.4-10.4); Platelet Count 243 10^3/uL (130-400); Red Blood Cell Count 3.93 10^6/uL (4.20-5.40); Red Cell Dist. Width 12.8 % (11.5-14.5); White Blood Cell Count 5.8 10^3/uL (4.8-10.8)
[2024-06-24 06:59] LABS: Troponin I 0.038 ng/ml
[2024-06-24 07:11] LABS: Blood Urea Nitrogen 24 mg/dl (7-17); Calcium 9.6 mg/dl (8.4-10.2); Carbon Dioxide 24 mmol/L (22-30); Chloride 106 mmol/L (98-107); Estimated Creatinine Clearance 59 ml/min; Glucose 106 mg/dl (70-99); Magnesium 2.2 mg/dl (1.6-2.3); Phosphorus 3.8 mg/dl (2.5-4.5); Potassium 4.4 mmol/L (3.5-5.1); Sodium 140 mmol/L (135-145); eGFR 59.86
[2024-06-24 07:25] VITALS: BP 121/89
[2024-06-24] MEDS: ELIQUIS 10 MG PO (08:15)
[2024-06-24] MEDS: LASIX 20 MG IV (08:15)
[2024-06-24] MEDS: TOPROL XL 12.5 MG PO (08:16)
[2024-06-24] MEDS: VITAMIN D3 (cholecalciferol) 50 MCG PO (08:16)
--- NOTE | 2024-06-24 09:11 | W.PN.PUL3 ---
Today's Communication / Plan
-
Continue Eliquis 10 mg BID x 7 days
Defer GDMT + CHF management to cardiology
Outpatient imaging with repeat CT chest to assess stability of her left lower lobe opacification which is likely due to a pulmonary infarct
Encourage incentive spirometer
Maintain SpO2 >90-94%
Patient being prepared for discharge home today - no additional recommendations at this time. Pulmonary service will now sign off. Outpatient pulmonary follow-up will be arranged for full PFTs and monitoring of her LLL opacity. Please reconsult
if there are any additional questions/concerns, or if patient's respiratory status deteriorates.
Assessment
-
Assessment: 74-year-old Malay female with a past medical history of gallbladder calculus and personal history of COVID-19 (2023) who presented with SOB and outpatient CTA chest was positive for a bilateral PE. Patient saw her PCP (Dr. Gonzalez) on
06/05/2024. She endorsed SOB that has been ongoing for few years and was also found to be wheezing on exam. CT chest as well as EKG, echo and additional blood work ordered. CBC & TFTs were WNL, and chemistry showed potassium 5.3, sodium 145, serum
bicarbonate level [address] chest with IV contrast performed today showing bilateral pulmonary emboli with mild clot burden with no evidence of RV strain. Also small bilateral pleural effusions. Patient sent to the ER for further
management. PERT alert called. Patient is on room air and is normotensive, and not considered a candidate for catheter-directed thrombolysis or embolectomy at this time. Subsequent bilateral lower extremity ultrasound showed an occlusive DVT in
the right posterior tibial vein with no other DVT identified. Patient will be admitted to the hospital and Pulmonary service consulted for additional management/recommendations.
Chronic conditions OUTPATIENT PHYSICAL THERAPIST ASSISTANT: Gallbladder polyp, personal history of COVID-19 (2023)
Impression:
#Acute submassive bilateral pulmonary embolism without radiographic RV strain (PESI score intermediate risk)
#Elevated troponin due to above
#Right lower extremity occlusive DVT
#Wheezing and chest tightness with activity likely due to undiagnosed asthma vs RAD (absolute eosinophil count: 200 on 06/22/2024)
#Left lower lobe pleural-based opacification (2.6 x 1.8 cm) likely due to lung infarction
#Chronic gallstone calculus without cholecystitis
#Chronic HFrEF/NICM
#Moderate to severe mitral regurgitation
#LBBB
Plan:
- Patient found to have bilateral pulmonary emboli with mild clot burden on CT chest with IV contrast which was ordered from her PCP on 06/05/2024 due to SOB with recent complaints of chest pain/tightness
- Unclear if this PE is provoked given her sedentary lifestyle vs unprovoked
- There may be some underlying asthma versus reactive airway disease causing her chest tightness as she also endorses an occasional dry cough especially with exertion and wheezing/crackling in her chest that she hears at night mainly on the right
side; she also has a history of allergies - will get outpatient PFTs
- She has had cardiac catheterizations in the past (2013+2017 - she was never stented, per the patient + ); TTE obtained on 06/22/2024 shows moderately dilated LV with LVEF 20% with global hypokinesis with moderate�severe MR and
mild�moderately elevated PASP at 35-40 mmHg assuming RAP of 8 mmHg
- Patient says that her 'one side of the heart has always been reduced at around 30%'; cardiology on board --> defer GDMT meds to them; if LVEF does not improve then she may need an ICD; she may also be a candidate for mitraclip if CHF worsens
- Transition from heparin drip to NOAC yesterday evening
- Consult case management to assist with affordability; per cardiology, once on Eliquis would DC ASA given bleeding risk
- Troponin has down trended to 0.038 today. No longer need to continue trending at this time
- PESI score is 92, class III which is an intermediate risk (3.2 - 7.1% 30-day mortality) --> she remains hemodynamically stable on room air breathing comfortably with saturations >95%; no indication for catheter directed thrombolysis or
embolectomy at this time, and she should do well with systemic anticoagulation
- Recommend outpatient evaluation by hematology for hypercoagulable workup and to assist with AC duration as unclear if her VTE is provoked vs unprovoked
- She has a LLL pleural-based opacity measuring 2.6 x 1.8 cm, likely a lung infarct. Repeat CT chest within the next 6-8 weeks to assess for stability - I will arrange for this once she sees us in our office
- Maintain SpO2 >90-94% with supplemental O2 as needed
- prn nebulized bronchodilators - not currently bronchospastic
- Incentive spirometer encouraged q1hr while awake
- Replete electrolytes with K>4, Mg>2
- Trend H/H and transfuse if needed to keep Hb>7g/dL; keep plt>20k, unless there is concern for bleeding then keep plt>50k
- Maintain euglycemia with goal BG >100 and <180
- PT/OT
- DVT ppx: Eliquis
Patient being prepared for discharge home today - no additional recommendations at this time. Pulmonary service will now sign off. Thank you for allowing us to be involved in the care of this patient. Please reconsult if there are any additional
questions/concerns, or if patient's respiratory status deteriorates. Outpatient pulmonary office follow-up will be arranged for full PFTs and continued monitoring of her symptoms
Data:
CT Chest with IV contrast 06/22/2024:
Bilateral pulmonary emboli. Mild clot burden. No evidence of right heart strain.
Small bilateral pleural effusions.
Gallstone.
Bilateral LE Duplex US 06/22/2024:
1. Occlusive deep venous thrombosis in right posterior tibial vein. No other deep venous thrombosis is identified.
2. Diffuse greater than expected pulsatility of the venous waveforms, a finding that may be seen in association with mitral regurgitation.
Total time spent today was 28 minutes for this encounter. Time includes reviewing laboratory test/imaging results, reviewing pertinent medical records, obtaining and reviewing medical history, performing an appropriate exam, ordering medications,
tests and procedures. Time also includes documentation of this encounter, coordinating patient care and communicating with other healthcare professionals. Total time does not include separately billed tests performed on this date of service.
Subjective Data
-
Date of Service:
Date of Service: June 24, 2024
Chief Complaint: Pulmonary Follow Up
Subjective:
Patient was seen and evaluated this morning. Afebrile overnight. She feels well with no overnight events reported. Denies chest pain, AGRAWAL, nausea, fevers chills. Still slightly SOB with exertion but otherwise breathing comfortably at rest.
Review of Systems
General: Other (Negative unless mentioned above)
Objective Data
Data Reviewed
Vital Signs / I&O / Oxygen:
Vital Signs
Temp Pulse Resp BP Pulse Ox
98.2 F 99 18 121/89 94
06/24/24 07:25 06/24/24 07:25 06/24/24 07:25 06/24/24 07:25 06/24/24 07:25
Intake and Output
06/23/24 06/24/24 06/25/24
06:59 06:59 06:59
Intake Total 480 / 480 1560 / 1560
Balance 480 / 480 1560 / 1560
SaO2 94
Physical Exam
General: Respiratory Distress (negative), Comfortable, Chills (negative) and Sweats (negative)
HEENT: Normocephalic and Anicteric
Cardiovascular: S1-S2 and Peripheral Edema (negative)
Respiratory: Clear, Wheeze (negative), Crackles (negative), Rhonchi (negative) and Non-Labored Respirations
GI: Soft, Distended (Abdominal obesity), Non Tender and Normal Bowel Sounds
Neurology: AO x 3 and Tremors (negative)
Skin: Warm, Dry, Cyanosis (negative) and Jaundice (negative)
Labs/Micro/Reports
Lab Data
06/24/24 05:56
06/24/24 05:56
Laboratory Results
06/23/24
13:01
APTT 117.6 H
--- NOTE | 2024-06-24 10:33 | PN.CDI ---
CDI
- -
CDI:
Physician Documentation Request
Admit Date: 06/22/24 13:01
Dear Doctor Sarthak,
Patient admitted for pulmonary embolism.
06/23 Hospitalist PN: 'DVT - venous doppler: 1. Occlusive deep venous thrombosis in right posterior tibial vein. No other deep venous thrombosis is identified.'
Clarify which of the following accurately represents the acuity of the DVT. Possible options might include:
____ Acute
Chronic
____ Other
Use of terms such as suspected, likely, concern for, or probable (associated with a specific diagnosis that is being evaluated, monitored, or treated as if it exists) are acceptable and can be coded in the inpatient setting, when documented at the
time of discharge.
Thank you,
Sienna Camargo RN, BSN
CDI Specialist
Available via [employer] text
Please use your independent medical judgment in providing your response.
--- NOTE | 2024-06-24 11:00 | CM ---
Patient seen at bedside with
IMM explained & signed. In chart
PLAN: home, no needs
to transport
--- NOTE | 2024-06-24 11:22 | W.PN.HOSP.TC ---
Today's Communication/Plan
-
dc to home
Assessment / Plan
Assessment / Plan
Acute/subacute Pulmonary Embolism
CT scan of chest:Bilateral pulmonary emboli. Mild clot burden. No evidence of right heart strain.
Small bilateral pleural effusions.
Gallstone.
DVT - Acute, venous doppler:
1. Occlusive deep venous thrombosis in right posterior tibial vein. No other deep venous thrombosis is identified.
2. Diffuse greater than expected pulsatility of the venous waveforms, a finding that may be seen in association with mitral regurgitation.
EKG with LBBB
Echo: Left ventricle is moderately dilated.
Severely reduced left ventricular systolic function.
LVEF 20% with global hypokinesis.
Moderate to severe mitral regurgitation.
Estimated PASP 35-40 mmHg and estimated RA 8 mmHg.
No prior study available for comparison.
P: IV Heparin transition to Eliquis 10 mg bid for 14 doses, than 5 mg bid to follow
consult pulm and cardio. Dr. Burk recommends stopping ASA while on Eliquis
see dictated note
Pt is a full code
dc now
see dictated note
reviewed with Dr. Monteiro
More than 30 minutes spent in discharge including
Final examination of the patient
Summarizing hospital stay
Instructions for continuing care to all relevant caregivers
Preparation of discharge records, prescriptions, and referral forms
Total time spent (in minutes): 45
Anticipated Discharge: Today
Subjective/Interval History
-
Date of Service: June 24, 2024
Feels well and is anxiously awaiting dc
Objective Data
-
Labs:
Laboratory Results
06/24/24
05:56
WBC 5.8
Hgb 11.9 L
Hct 35.6 L
Plt Count 243
Sodium 140
Potassium 4.4
Chloride 106
Carbon Dioxide 24
BUN 24 H
Creatinine 1.0
Glucose 106 H
Calcium 9.6
Vital Signs:
Vital Signs
Temp Pulse Resp BP Pulse Ox
98.2 F 99 18 121/89 94
06/24/24 07:25 06/24/24 07:25 06/24/24 07:25 06/24/24 07:25 06/24/24 07:25
I&O
06/23/24 06/24/24 06/25/24
06:59 06:59 06:59
Intake Total 480 / 480 1560 / 1560
Balance 480 / 480 1560 / 1560
Review of Systems
-
History Source: Patient and Family ( in room)
EENT: Reports No Symptoms Reported
Respiratory: Reports Trouble Breathing
Cardiac: Reports Other (tachycardia, reduced, HR ~98-100); Denies Chest Pain
Abdomen/GI: Reports No Symptoms
Genitourinary: Reports No Symptoms
Musculoskeletal: Reports No Symptoms
Neuro: Reports No Symptoms
Physical Exam
-
General: Well Developed, Well Nourished and No Apparent Distress
HEENT: Normocephalic, Atraumatic and Moist Mucous Membranes
Respiratory: Clear to Auscultation; Negative Wheezes, Rales or Rhonchi
Cardiac: Regular Rhythm, S1/S2 and Tachycardic
GI: Soft, Nontender and Nondistended
Musculoskeletal: No Clubbing, No Cyanosis and No Edema
Neuro: Awake, Alert and Oriented
Psych: Calm
[2024-06-24 11:30] VITALS: BP 124/89
[2024-06-24 11:39] VITALS: BP 120/82
--- NOTE | 2024-06-24 12:38 | W.PN.CD ---
Today's Communication / Plan
-
-
-
OK for home from our perspective.
Home on HF BB and loop diuretic. Later more therapy. Intentionally going slow (patient centered care)
BMP in 2 weeks
Keep appt with Dr. Aquino as planned
Cardiology will sign off
-
-
Impression / Plan
-
Background: 74 yo new to [facility] who was found on CTA to have pulm emboli and an echo shows severe LV systolic dysfunction. By history chronic LBBB and non-ischemic cardiomyopathy. She has not seen a mercerizer machine operator in several
years. She has had cardiac care at [facility] area and with mercerizer machine operator with [facility], Dr. Tim Henderson MD.
PCP Jennifer Gonzalez, DO
Card Luke Aquino MD, PhD (has not seen him yet; office appointment)
Impression:
Pulmonary embolism and distal DVT
- Per primary service
Chronic HFrEF, likely NYHA class 2, ACC/AHA stage 3
- The dyspnea, pleural effusions, and trace edema favor adding loop diuretic
- Eventual GDMT with HF BB, RAAS-I (TAZ-I/ARNI/ARB), MRA (Aldactone or eplerenone), and SGLT-I (Farxiga or Jardiance) and a loop diuretic to control congestion
- Add more meds over time
- If HF worsens despite max tolerated med rx then BiV ICD can be offered
- If EF does not improve on max tolerated meds to over 35% she can be offered primary prevention ICD
LBBB
- Onset after her 1st or perhaps 2nd cath
Non-ischemic cardiomyopathy
- She reports 2 caths spaced over 3-4 years, last cath 2018/2018 without CAD
- She reports 'one side of my heart works at just 30%'
- For many years
Mitral regurgitation:
- Mod-severe, secondary
- Suspect will improve with HF med rx +/- CARPENTER'S ASSISTANT
- but if HF worsens and MR persists despite the above then in future MitraClip evaluation could be pursued
Chest pain syndrome, chronic stable
- Onset several years ago but perhaps after last cath
- C/w stable angina but perhaps represents HF symptoms
- If CP syndrome persists after on max meds tolerated than could consider stress vs cath, pt reluctant to have a third cath, CP syndrome may be new since last cath, pt not sure
Elevated blood pressure without a history of HTN
Medication intolerances
Subjective/Interval Hx:
Feels fine at rest
Physical Exam
Vital Signs/Labs
Vital Signs
Temp Pulse Resp BP Pulse Ox
97.7 F 103 18 120/82 97
06/24/24 11:39 06/24/24 11:39 06/24/24 11:39 06/24/24 11:39 06/24/24 11:39
06/23/24 06/24/24 06/25/24
06:59 06:59 06:59
Actual Weight 90.945 kg 91.229 kg
06/24/24 05:56
06/24/24 05:56
PT 14.1 Sec (11.4-14.6) 06/22/24 08:54
INR 1.05 06/22/24 08:54
APTT 117.6 Sec (23.4-35.0) H 06/23/24 13:01
Magnesium 2.2 mg/dl (1.6-2.3) 06/24/24 05:56
06/22/24
08:54
Akm-Q-Nbcwiytcztg Pept 3640
LAB Results
06/22/24 06/24/24
08:54 05:56
Troponin I 0.056 H* 0.038 H*
Physical Exam
Constitutional: No acute distress
EENT: Anicteric
Cardiovascular: Rhythm & rate is regular and Pedal edema is absent
Respiratory: Respiratory effort normal and Lungs clear to auscul.
GI: Soft and Distention absent
Neuro/Psych: AO x 3
Data Reviewed
-
Date of Service: June 24, 2024
--- NOTE | 2024-06-24 17:06 | W.DS.TRANS ---
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
-
Discharge Instructions:
Discharge Diagnosis/Procedures Pulmonary Embolism
Diet Low Sodium
Activity No strenuous activity
Driving Restrictions As prior to admission
Bathing Restrictions None
Blood Work CBC, CMP
Instructions:
Stand-Alone Forms:
Changes to Home Medications: Yes
Discharge Medications:
DC Medications w/original date entered in [employer]
carboxymethylcellulose sodium 0.25 % eye drops (TheraTears) 1 drp ophthalmic (eye) QIDPRN PRN dry eye 06/22/24
cholecalciferol (vitamin D3) 50 mcg (2,000 unit) capsule (Vitamin D3) 50 mcg PO DAILY Supplement 06/22/24
omega-3 fatty acids-fish oil 684 mg-1,200 mg capsule,delayed release 1 cap PO DAILY Supplement 06/22/24
vitamin A 2,400 mcg capsule 2,400 mcg PO DAILY Supplement 06/22/24
vitamin K2 40 mcg tablet 40 mcg PO DAILY Supplement 06/22/24
apixaban 5 mg tablet (Eliquis) 5 mg PO BID #60 tabs 06/24/24
apixaban 5 mg tablet (Eliquis) 10 mg (2 x 5 mg) PO BID #24 tabs 06/24/24
furosemide 20 mg tablet (Lasix) 20 mg PO DAILY #30 tabs 06/24/24
metoprolol succinate 25 mg tablet,extended release 24 hr 12.5 mg (1/2 x 25 mg) PO DAILY #30 tabs 06/24/24
Home Medication Changes
Lasix and Toprol XL added to her medications
She is to take Eliquis 10 mg bid for 12 doses, then start 5 mg q12h to follow
Pending Results: No
== END 2024-06-24 13:06 | disposition home or self-care (01) | DRG 176 ==
LOC: 3 WEST ACU 13:01
PROVIDERS: Physician Assistant; ADMITTING PHYSICIAN Internal Medicine; CONSULT PHYSICIAN Internal Medicine Cardiovascular Disease; CONSULT PHYSICIAN Internal Medicine Critical Care Medicine; EMERGENCY PHYSICIAN Emergency Medicine; FAMILY PHYSICIAN Family Medicine
DX: I26.99 Other pulmonary embolism without acute cor pulmonale (principal); I82.441 Acute embolism and thrombosis of right tibial vein; I42.8 Other cardiomyopathies; I50.22 Chronic systolic (congestive) heart failure; I34.0 Nonrheumatic mitral (valve) insufficiency; I44.7 Left bundle-branch block, unspecified; Z79.82 Long term (current) use of aspirin; Z90.49 Acquired absence of other specified parts of digestive tract; Z80.41 Family history of malignant neoplasm of ovary; Z86.16 Personal history of COVID-19; I11.0 Hypertensive heart disease with heart failure; I20.89 Other forms of angina pectoris; Z80.0 Family history of malignant neoplasm of digestive organs; Z86.711 Personal history of pulmonary embolism
CPT/HCPCS: 71260; 80048; 80053; 83735; 83880; 84100; 84484; 85025; 85027; 85379; 85610; 85730; 93005; 93306; 93970; 96374; 99285; Q9967

== ENCOUNTER → 2024-10-12 07:47 | Outpatient (REF) | payer MEDICARE, SELFPAY | LOC: HWRAD 07:47 | PROVIDERS: ATTENDING PHYSICIAN Internal Medicine Critical Care Medicine; FAMILY PHYSICIAN Family Medicine | DX: R91.1 Solitary pulmonary nodule (principal) | CPT/HCPCS: 71250 ==

== ENCOUNTER → 2024-10-19 08:51 | Outpatient (REF) | payer MEDICARE, SELFPAY | LOC: RCS 08:51 | PROVIDERS: ATTENDING PHYSICIAN Nurse Practitioner; FAMILY PHYSICIAN Family Medicine | DX: I42.8 Other cardiomyopathies (principal); I50.22 Chronic systolic (congestive) heart failure; I44.7 Left bundle-branch block, unspecified | CPT/HCPCS: 93306 ==

== ENCOUNTER → 2024-10-21 10:18 | Outpatient (REF) | payer MEDICARE, SELFPAY | LOC: RAD 10:18 | PROVIDERS: ATTENDING PHYSICIAN Internal Medicine Hematology & Oncology; FAMILY PHYSICIAN Family Medicine | DX: I26.99 Other pulmonary embolism without acute cor pulmonale (principal); I82.401 Acute embolism and thrombosis of unspecified deep veins of right lower extremity | CPT/HCPCS: 93971 ==